=== PATIENT | female | born 1995 | race Caucasian/White ===

== ENCOUNTER 2025-09-11 04:06 | Emergency (ER) | payer OTHER, SELFPAY ==
[2025-09-11 04:10] VITALS: BP 134/79
[2025-09-11 05:00] VITALS: BMI 25.4
[2025-09-11 05:26] LABS: Hematocrit 36.6 % (37.0-47.0); Hemoglobin 12.2 g/dL (12.0-16.0); Mean Corp Hgb Conc. 33.3 g/dL (33.0-37.0); Mean Corpuscular Volume 85.3 fL (81.0-99.0); Nucleated Red Blood Cells % 0 %; Platelet Count 236 10^3/uL (130-400); Red Cell Dist. Width 12.2 % (11.5-14.5)
[2025-09-11 05:42] LABS: Urine Character Clear (Clear)
[2025-09-11 06:08] LABS: HCG, Serum Qualitative Screen Negative
[2025-09-11 06:14] LABS: Blood Urea Nitrogen 7 mg/dl (7-17); Calcium 8.8 mg/dl (8.4-10.2); Carbon Dioxide 23 mmol/L (22-30); Chloride 108 mmol/L (98-107); Estimated Creatinine Clearance 119 ml/min; Glucose 85 mg/dl (70-99); Sodium 136 mmol/L (135-145); eGFR > 60.00
[2025-09-11 06:24] LABS: Urine Squamous Cell >30 /LPF (Few)
[2025-09-11 06:26] LABS: Urine Red Blood Cell 0-2 /HPF (0-2)
--- NOTE | 2025-09-11 07:01 | ED.GENMED ---
History of Present Illness
<Leroy Juarez, DO - Last Filed: 09/12/25 23:24>
General
Chief Complaint: Abdominal Pain
Source: patient
Exam Limitations: none
Time Seen by Provider: 09/11/25 04:23
Nursing documentation reviewed up to this point in time: agreed with
History of Present Illness
History of Present Illness:
Note:
CHIEF COMPLAINT(S)
Lower abdominal pain, specifically in the right lower quadrant.
HISTORY OF PRESENT ILLNESS
The patient is a 29-year-old female who presents with right lower quadrant abdominal pain. The pain is described as localized just above the hip area. Patient states that this pain is higher and distinctly different than her typical menstrual pain.
The patient denies any vomiting, nausea, or cramping. She confirms that her appendix is still present. There is a concern for appendicitis, and a computed tomography scan has been planned to investigate further. The patient reported no relief after
eating or drinking, except for necessary intake due to pain.
SOCIAL HISTORY
The patient reports no excessive alcohol use. No other substance use mentioned.
PHYSICAL EXAM
General: Alert, no acute distress.
Skin: Warm, dry.
Head: Normocephalic, atraumatic.
Neck: Supple, trachea midline.
Eye, Ears, Nose, Mouth, and Throat: Oral mucosa moist.
Cardiovascular: Normal peripheral perfusion, no edema.
Respiratory: Respirations are non-labored.
Gastrointestinal: Tenderness in the right lower quadrant. Positive McBurney's point tenderness abdomen nondistended.
Back: Normal range of motion, normal alignment.
Musculoskeletal: Normal range of motion, normal strength.
Neurological: Alert and oriented to person, place, time, and situation, no focal neurological deficit observed.
Psychiatric: Cooperative, appropriate mood & affect.
PLAN
A computed tomography scan of the abdomen will be performed to evaluate for appendicitis. The patient will be advised not to consume any food or drink unless necessary until further examination and diagnosis are complete.
DIFFERENTIAL DIAGNOSIS
The Differential Diagnosis includes, in no particular order and is not limited to:
- Appendicitis
- Ovarian cyst or torsion
- Kidney stone
- Gastroenteritis
- Pelvic inflammatory disease
- Ectopic
- Urinary tract infection
- Inflammatory bowel disease
- Diverticulitis
- Musculoskeletal pain
Phy Exam
<Leroy Juarez, DO - Last Filed: 09/12/25 23:24>
Physical Exam
Physical Exam:
.
Course
<Leroy Juarez, DO - Last Filed: 09/12/25 23:24>
Orders/Labs/Results
Orders:
Orders
09/11/25 04:18
Test Result ONCE
09/11/25 04:26
CT Abd/pelvis W Iv Cont Urgent
Comment:
Reason For Exam: rlq pain
09/11/25 05:08
Complete Blood Count/With Diff Urgent
Urinalysis Reflex To Culture Urgent
Date Specimen was Collected: 09/11/25
Time Specimen was Collected: 05:07
Urine Microscopic Reflex Cult Urgent
Urine Culture Urgent
ALAN Source: U
Specimen Description:
Date Specimen was Collected: 09/11/25
Time Specimen was Collected: 05:07
09/11/25 05:42
Basic Metabolic Panel Routine
Comment: NO K
HCG, Serum Qualitative Screen Routine
Abnormal Lab Results
09/11/25 09/11/25
05:08 05:42
Hct 36.6 L %
(37.0-47.0)
Chloride 108 H mmol/L
(98-107)
Creatinine 0.5 L mg/dL
(0.6-1.0)
Urine Urobilinogen 2+ A
(Neg - 1+)
Urine Bacteria (Reflex) Many A
(Negative)
Urine Albumin (Reflex) 1+ A
(Neg - Trace)
09/11/25 05:08
09/11/25 05:42
Vital Signs
Initial and Last Documented VS:
Initial Vital Signs
Temp Pulse Resp BP Pulse Ox
98.6 F 84 20 134/79 100
09/11/25 04:10 09/11/25 04:10 09/11/25 04:10 09/11/25 04:10 09/11/25 04:10
Last Documented Vital Signs
Temp Pulse Resp BP Pulse Ox
98.0 F 65 16 110/78 100
09/11/25 08:39 09/11/25 08:39 09/11/25 08:39 09/11/25 08:39 09/11/25 08:39
<Abundio Thomas, DO - Last Filed: 09/11/25 08:01>
Orders/Labs/Results
Orders:
Orders
09/11/25 04:18
Test Result ONCE
09/11/25 04:26
CT Abd/pelvis W Iv Cont Urgent
Comment:
Reason For Exam: rlq pain
09/11/25 05:08
Complete Blood Count/With Diff Urgent
Urinalysis Reflex To Culture Urgent
Date Specimen was Collected: 09/11/25
Time Specimen was Collected: 05:07
Urine Microscopic Reflex Cult Urgent
Urine Culture Urgent
ALAN Source: U
Specimen Description:
Date Specimen was Collected: 09/11/25
Time Specimen was Collected: 05:07
09/11/25 05:42
Basic Metabolic Panel Routine
Comment: NO K
HCG, Serum Qualitative Screen Routine
Abnormal Lab Results
09/11/25 09/11/25
05:08 05:42
Hct 36.6 L %
(37.0-47.0)
Chloride 108 H mmol/L
(98-107)
Creatinine 0.5 L mg/dL
(0.6-1.0)
Urine Urobilinogen 2+ A
(Neg - 1+)
Urine Bacteria (Reflex) Many A
(Negative)
Urine Albumin (Reflex) 1+ A
(Neg - Trace)
09/11/25 05:08
09/11/25 05:42
Vital Signs
Initial and Last Documented VS:
Initial Vital Signs
Temp Pulse Resp BP Pulse Ox
98.6 F 84 20 134/79 100
09/11/25 04:10 09/11/25 04:10 09/11/25 04:10 09/11/25 04:10 09/11/25 04:10
Last Documented Vital Signs
Temp Pulse Resp BP Pulse Ox
98.0 F 65 16 110/78 100
09/11/25 08:39 09/11/25 08:39 09/11/25 08:39 09/11/25 08:39 09/11/25 08:39
<DO Nickolas Cruz Last Filed: 09/12/25 23:24>
*Pulse Oximetry
SaO2: 100
Oxygen Mode of Delivery: Room air
Patient hypoxic: no
*Critical Care Note
Total Time (30-74mins, 75-104mins- exclusive of procedures): Not Applicable
<Abundio Thomas DO - Last Filed: 09/11/25 08:01>
Update Note
Update Note:
8 AM care of patient was transitioned pending CT to rule out appendicitis. CT negative for acute abnormality. We discussed the incidental finding on the CT. On my assessment, patient has very minimal right lower quadrant pain. . Patient feels
comfortable going home. Patient given a printout of the CT result and blood work and discussed return precautions
ED Attending Note
<DO Nickolas Cruz Last Filed: 09/12/25 23:24>
-
Portions of this chart may have been created with voice recognition software.� Occasional wrong word or��sound alike� substitutions may have occurred due to the inherent limitations of voice recognition software.
Discharge Plan
Departure
Patient Disposition: Home (Routine Discharge)
Date of Disposition: 09/11/25
Time of Disposition: 08:00
Patient with high blood pressure during this ER visit?: No
Discharge Problem:
Abdominal pain
Instructions: Abdominal Pain
Prescriptions:
No Action
clonazepam 0.5 mg Tablet
0.5 mg PO PRN PRN (Reason: anxiety)
zolpidem [Ambien] 10 mg Tablet
10 mg PO HS
dextroamphetamine-amphetamine [Adderall] 5 mg Tablet
25 mg PO DAILY
drospirenone-ethinyl estradiol [Vestura (28)] 3-0.02 mg Tablet
1 tab PO DAILY
Referrals:
UNKNOWN - PT NOT,INTERVIEWE [Family Provider]
Activity Restrictions/Additional Instructions:
Please return for any worsening symptoms.
You may return at any time if you have further concerns.
Please follow up with your doctor at the first available appointment, preferably this week.
Thank you for choosing [facility].
Interventions
Interventions:
*General Assessment Last Done: 09/11/25 05:01
*Neglect/Abuse Screening Last Done: 09/11/25 04:10
*ED COVID-19 Vaccine History Last Done: 09/11/25 04:10
*ED Influenza Vaccine History Last Done: 09/11/25 04:10
[facility] Fall Risk Assessment Tool Last Done: 09/11/25 05:01
*Risk Screen - Suicide (C-SSRS) Last Done: 09/11/25 05:02
*Nursing Disposition Last Done: 09/11/25 08:39
PR-Wdmbqh-Ejipuuifbc Assessment Last Done: 09/11/25 07:43
Discharge Date and Time
Discharge Date/Time: 09/11/25 08:30
Print Language: AFGHAN
[2025-09-11 07:40] VITALS: BP 110/78
--- NOTE | 2025-09-11 08:37 | EDRN ---
Reviewed discharge instructions with patient. Verbalized understanding. Ambulated with steady gait to lobby.
[2025-09-11 08:39] VITALS: BP 110/78
== END 2025-09-11 08:30 | disposition home or self-care (01) ==
LOC: EMR 04:06
PROVIDERS: EMERGENCY PHYSICIAN Student in an Organized Health Care Education/Training Program
DX: R10.30 Lower abdominal pain, unspecified (principal)
CPT/HCPCS: 99284; 74177; 80048; 81003; 81015; 84703; 85025; 87086; Q9967